=== PATIENT | male | born 1990 | race Caucasian/White ===

== ENCOUNTER 2025-01-13 11:36 | Inpatient (IN) | payer OTHER ==
[~2025-01-13] VITALS: Ht 177.8 cm; Wt 95.0 kg
[2025-01-13 12:10] LABS: BASOPHILS % (AUTO) 0.3 % (0-1); EOSINOPHILS % (AUTO) 0.6 % (0-6); HEMATOCRIT 44.5 % (42.0-52.0); HEMOGLOBIN 15.2 g/dl (14.0-17.9); LYMPHOCYTES # (AUTO) 0.9 X10'3 (1.1-4.8); LYMPHOCYTES % (AUTO) 13.6 % (21-51); MEAN CORPUSCULAR HEMOGLOBIN 31.7 PG (27.0-31.0); MEAN CORPUSCULAR HGB CONC 34.1 g/dL (33.0-36.5); MEAN PLATELET VOLUME 7.7 FL (7.4-10.4); MONOCYTES # (AUTO) 0.4 X10'3 (0-0.9); MONOCYTES % (AUTO) 5.7 % (2-12); NEUTROPHILS # (AUTO) 5.2 X10'3 (1.8-7.7); NEUTROPHILS % (AUTO) 79.8 % (42-75); PLATELET COUNT 212 X10'3 (140-440); RED BLOOD COUNT 4.78 X10'6 (4.70-6.10); RED CELL DISTRIBUTION WIDTH 13.3 % (11.5-14.5); WHITE BLOOD COUNT 6.5 X10'3 (4.5-11.0)
[2025-01-13 12:22] LABS: APTT 32 SECONDS (22-32); INR 1.2 INR; PROTHROMBIN TIME 11.9 SECONDS (9.0-12.0)
[2025-01-13 12:27] LABS: ALANINE AMINOTRANSFERASE 22 U/L (12-78); ALBUMIN 3.7 G/DL (3.4-5.0); ALBUMIN/GLOBULIN RATIO 1.5 (1.1-1.5); ALKALINE PHOSPHATASE 71 IU/L (46-116); ANION GAP 5 (8-16); ASPARTATE AMINO TRANSFERASE 22 U/L (10-37); BILIRUBIN,TOTAL 0.5 MG/DL (0.1-1.0); BLOOD UREA NITROGEN 21 MG/DL (7-18); BUN/CREATININE RATIO 16.9 (10.0-20.0); CHLORIDE 108 MMOL/L (99-107); CREATININE 1.24 MG/DL (0.60-1.10); GLUCOSE 92 MG/DL (70-104); LIPASE 22 U/L (16-77); POTASSIUM 4.1 MMOL/L (3.5-5.1); SODIUM 141 MMOL/L (135-145); TOTAL CARBON DIOXIDE 28.3 MMOL/L (24-32); TOTAL PROTEIN 6.1 G/DL (6.4-8.2); eCRCL 87 ML/MIN; eGFR 67 ML/MIN
--- NOTE | 2025-01-13 13:07 | Physician Documentation ---
History of Present Illness Chief Complaint: Abdominal Pain Stated Complaint: SMALL BOWEL OBST Time Seen by MD: 12:55 HPI 34-year-old male presenting via EMS transferred from [facility] in [place], [place]. This is a gentleman presenting with abdominal pain which has been ongoing for the past day. He states that he woke up at about 3:00 a.m. with significant pain across his lower abdomen.. He states that it is centered around his umbilicus and radiates outwards. He states that the pain has gradually been worsening over the past couple of days. He has not had any bowel movements but has been passing gas. He has also felt very nauseous during this time as well but denies any vomiting, denies any diarrhea, constipation or any other associated symptoms. The patient does have a history of an appendectomy which required open laparoscopy several years ago. Medication Reconciliation Allergies: Coded Allergies: morphine (Verified Allergy, Severe, 01/18/25) TOLERATED HYDROMORPHONE 01/2025 Miscellaneous Medications Home Med List (No Home Medications), (Reported) Past Medical History Past Medical History: No Pertinent History Past Surgical History: appendectomy Review of Systems All Other Systems at this time: Reviewed and Negative Physical Exam Vital Signs: Temperature: 98.4, Source: Temporal, Heart Rate: 85, Respiratory Rate: 18, BP: 129/50, Pulse Oximetry: 98, Weight: 95.050 Physical Exam I have reviewed the triage vitals. CONST: Well developed and well nourished. In no acute distress HENT: Head Atraumatic EYES: Pupils are equal, round and reactive to light. Normal conjunctiva NECK: Normal range of motion. Supple. CARDIO: Normal rate and regular rhythm. No murmurs, rubs, or gallops. S1, S2. PULM/CHEST: No respiratory distress. Lungs clear to auscultation. No wheeze ABD: Soft, tenderness to palpation over the umbilicus and diffusely in all other areas. There is a midline surgical scar present. Nondistended. Bowel sounds normal. No guarding. : Exam deferred MSK: No edema. No deformity. NEURO: Alert and oriented to person, place and time. Moving all extremities SKIN: Warm and dry. PSYCH: Normal mood and affect. Good eye contact. Progress Results/Orders Results/Orders Orders - MY DOMINGUEZ MD Normal Saline 1000ml (Sodium Chloride 10 (01/13/25 13:05) Ketorolac Trometh 30mg/Ml Vial (Toradol (01/13/25 13:05) Completed Orders - MY DOMINGUEZ MD Cbc/Diff (01/13/25 11:49) CMP (01/13/25 11:49) Pt Inr (01/13/25 11:49) PTT (01/13/25 11:49) Lipase (01/13/25 11:49) Vital Signs 01/13/25 01/13/25 11:41 12:16 Temp 98.4 Pulse 85 Resp 18 B/P (MAP) 129/50 Pulse Ox 98 Laboratory Tests Test 01/13/25 11:57 White Blood Count 6.5 Red Blood Count 4.78 Hemoglobin 15.2 Hematocrit 44.5 Mean Corpuscular Volume 93.0 Mean Corpuscular Hemoglobin 31.7 H Mean Corpuscular Hemoglobin Concent 34.1 Red Cell Distribution Width 13.3 Platelet Count 212 Mean Platelet Volume 7.7 Neutrophils (%) (Auto) 79.8 H Lymphocytes (%) (Auto) 13.6 L Monocytes (%) (Auto) 5.7 Eosinophils (%) (Auto) 0.6 Basophils (%) (Auto) 0.3 Neutrophils # (Auto) 5.2 Lymphocytes # (Auto) 0.9 L Monocytes # (Auto) 0.4 Eosinophils # (Auto) 0.0 Basophils # (Auto) 0.0 CBC Comment Prothrombin Time 11.9 INR International Normalized Ratio 1.2 Activated Partial Thromboplast Time 32 Coagulation Comments Sodium Level 141 Potassium Level 4.1 Chloride Level 108 H Carbon Dioxide Level 28.3 Anion Gap 5 L Blood Urea Nitrogen 21 H Creatinine 1.24 H Estimated GFR/1.73 m2 67 BUN/Creatinine Ratio 16.9 Glucose Level 92 Calcium Level 8.0 L Total Bilirubin 0.5 Aspartate Amino Transf (AST/SGOT) 22 Alanine Aminotransferase (ALT/SGPT) 22 Alkaline Phosphatase 71 Total Protein 6.1 L Albumin 3.7 Globulin 2.4 L Albumin/Globulin Ratio 1.5 Lipase 22 Chemistry Comments EKG/XRAY/CT/US/VASC/MRI Abdominal X-Ray : Additional Comment Patient: CLARK SRIVASTAVA Medical Record: [id number] : 1990, Age: 34 Sex: Male Location: ED HOLD Patient Status: ADM IN Service Date/Time: 01/13/251641 Ordering Physician: MY DOMINGUEZ MD Exam: ABDOMEN,SINGLE VIEW(KUB) EXAM: DI ABDOMEN,SINGLE VIEW(KUB) HISTORY: NGT placement. COMPARISON: None TECHNIQUE: Supine view of the abdomen FINDINGS: Nonobstructive bowel gas pattern noted. There is no evidence for pneumoperitoneum. No abnormal calcifications noted. Enteric tube in the proximal body of the stomach. Mild stool burden. IMPRESSION Enteric tube in the proximal body of the stomach. Medical Decision Making Additional Comments 34 yo M presenting for a small bowel obstruction. Started on IV fluids and medicated for pain with IV dilaudid. NG tube placed. Patient admitted and surgery consulted as well. Departure Disposition: ADMITTED INPATIENT Admitted to Inpatient Unit: to hospitalist Admission Level of Care: Med/Surg Impression: Primary Impression: Small bowel obstruction Condition: Guarded Referrals: NO PRIMARY CARE PROVIDER (PCP) Signature Scribe Signature: 1 Attestation: 1 MY DOMINGUEZ MD Jan 13, 2025 13:07
[2025-01-13] MEDS: normal saline 1000ml 1,000 ML IV ONE (13:35)
[2025-01-13] MEDS: ketorolac trometh 30MG/ML vial 30 MG/ML VIAL IV ONE (13:35)
[2025-01-13] MEDS: HYDROmorphone inj. 0.5 MG/0.5 ML DISP.SYRIN IV ONE (14:00)
[2025-01-13] MEDS ORDERED: acetaminophen 325mg tablet PO PRN (15:50)
[2025-01-13] MEDS ORDERED: potassium Cl 40MEQ/1/2NS 520ml 520 ML IV PRN (15:50)
[2025-01-13] MEDS ORDERED: magnesium sulf-water 2g/50mL 50 ML IV PRN (15:50)
[2025-01-13] MEDS ORDERED: HYDROmorphone/PF 0.2 MG/ML SYRINGE IV PRN (15:50)
[2025-01-13] MEDS ORDERED: magnesium sulf-water 4G/100mL 100 ML IV PRN (15:50)
[2025-01-13] MEDS ORDERED: magnesium Cl slow-release 64mg tablet PO PRN (15:50)
[2025-01-13] MEDS ORDERED: docusate sod 100mg capsule PO PRN (15:50)
[2025-01-13] MEDS ORDERED: potassium Cl 20 mEq SR tablet PO PRN ×2 (15:50)
[2025-01-13] MEDS ORDERED: magnesium hydroxide 30ml (MOM) UD suspension PO PRN (15:50)
[2025-01-13] MEDS ORDERED: mag hydrox/Alum hydrox/simeth 30ml oral suspension PO PRN (15:50)
--- NOTE | 2025-01-13 16:10 | HISTORY AND PHYSICAL-Residence ---
History & Physical Providers to CC Resident Creating Document: HARJINDER BARRETTZA ~ History of Present Illness Reason for Admit\Complaint: Partial SBO History of Present Illness A 34 years old male with no significant past medical history except for the s/p laproscopic and complicated with the laprotomy appendicectomy who was transferred from the [facility] in [place] for the sudden acute lower abdominal pain since this morning with slight nausea. He is a travel ICU nurse and endorsed that he woke up with the acute sudden central periumbilical pain with sharp colicky in nature, associated with nausea but not vomiting this morning around 3 O'clock. He noticed that his pain was getting better with the position which make his intraabdominal pressure relieved e.g. lying down and sitting etc and similar to the pain when he got appendicitis. He could pass the gas but not the bowel movement since he passed his last time BM was yesterday morning and which was normal solid form and no previous Hx of LBM diarrhea and constipation. He denied radiating and shifting pain, fever with chills and rigors, projectile vomiting, SOB, perspiration, Chest pain, hematuria and dysuria. He denies any traumatic injury to the lower abdomen, scrotum and private parts, any previous Hx of UTIs and STIs before. However, he stated that he has a laparoscopic incisional approach for suspicious malignant intrabdominal lesion but had to do the open incision for the appendicitis, which was further complicated with the open midline laparotomy for the decompression within days 1-2 years ago. He denied any recent travelling history outside of the countries and food poisoning. He denies losing appetite and unexplained significant abrupt weight loss. No history of bilateral inguinal femoral and umbilical hernias. Allergies: Coded Allergies: morphine (Verified Allergy, Severe, 01/13/25) Past Medical History Past Medical History no significant past medical history Past Surgical History Surgical History Comment s/p laproscopic and complicated with the laprotomy appendicectomy Past Social History Social History Comment He denies using illicit drugs, lifetime nonsmoker, and he is a occasional alcohol user with a beer in every two weeks. He is a travel ICU nurse. ROS All Other Systems: Reviewed and Negative ROS ROS were reviewed, WNL except for the above-mentioned in HPI. Exam Vitals: Vital Signs Date Time Temp Pulse Resp B/P (MAP) Pulse Ox O2 Delivery O2 Flow Rate FiO2 01/13/25 15:00 72 115/57 (76) 96 01/13/25 14:00 16 01/13/25 11:41 98.4 General: General: Well alert, well oriented, not confused, not agitated, not in acute distress, well cooperated during the physical. HEENT: HEENT: Conjunctive are pink, sclerae clear, no icterus, pupil is equal in both sides, reactive to light, no ear discharge, no pharyngeal erythema or an edema, mouth and lips are dry. Neck: Neck: Supple, no JVD, no lymphadenopathy and thyromegaly. Chest: Lungs:Equal air entry on both lungs, no additional sounds Cardiovascular: Heart: S1-S2 regular sinus rhythm and, regular rate, no gallops, no rubs, no murmurs Abdomen: Abdomen: No visible peristalsis, Bowel sounds present on auscultation and increased, soft, tender at the epigastrium, and left flank and periumbilical areas, no guarding, no rigidity, NO undescended intra-abdominal testes and both scrotum filled with bilateral testes, no club shape or horizontal rotated testes in the scrotum, no inflammed and signs of infections over the scrotum. No bilateral or umbilical hernia. Extremities: Extremities: No obvious deformities, no pitting edema bilaterally, capillary refill intact, able to wiggle toes both sides, peripheral pulsations are intact on both sides Central Nervous System: SPEED BELT SANDER: No focal neurological deficits, no motor and sensory weakness in all 4 extremities, could move all 4 extremities Musculoskeletal: Musculoskeletal: No joint swelling, deformities, inflammations, and no scoliosis and back tenderness Skin: Skin: No active skin lesions and rashes Diagnostic Data Last Recorded Lab Results: 01/13/25 1157 01/13/25 1157 Diagnostic Data: Laboratory Tests Test 01/13/25 11:57 Prothrombin Time 11.9 SECONDS (9.0-12.0) INR International Normalized Ratio 1.2 INR Activated Partial Thromboplast Time 32 SECONDS (22-32) Coagulation Comments Advance Care Planning Advanced Care plannin - 30 Minutes Additional Plan A 34 years old male with no significant past medical history except for the s/p laproscopic and complicated with the laprotomy appendicectomy who was transferred from the [facility] in [place] for the sudden acute lower abdominal pain since this morning with slight nausea. # Partial SBO possibly related to post surgical adhesions # Hx of s/p laparoscopic and complicated with the laparotomy appendicectomy -CT AP was done at [facility] stated that partial SBO. -excluded other potential DDx w/ undescended testes, testicular torsion, kidney stones etc. -possibly from the previous surgical laparotomy and adhesions causing his SBO -electrolytes are within normal schuyler K+ -WNL Lactic acid, WBC and Procal -pain management with IV dilaudid and rash development Hx on Morphine -IV NS 100 ml/hr -NPO -NG tube placement for the bowel decompression -Monitor BM BG and BS -Encouraged movements -ER doc informed that he will inform the Oncall Surgical team. -CT AP w/ contrast at [facility] on 01/13/25 showed that Findings: Lung bases, liver, gallbladder, pancreas spleen and adrenal glands, kidneys, urinary bladder-unremarkable. -the colon is within normal limits. Appendicectomy suspected. The terminal ileum is decompressed. Moderately dilated loops of small bowel are visualized measuring up to 3.5 cm, demonstrating small bowel feces signs and air-fluid levels. No evidence of extraluminal gas or fluid. There are no enlarged lymph nodes. Impressions: Moderate grade partial small bowel obstruction. Transition point is not identified. There appears to be appendectomy, therefore findings may be related to postsurgical adhesions. Consider surgical consultation. # Elevated BUN and Cr- possible ROHIT renal from contrast induced Vs prerenal from renal tubular stasis from dehydration -Cr 1.24 with no baseline to be compared, mostly from the dehydration from last drinks and meal was 5 Oclock in the am. -Monitor CMP daily and I's and O's -Continue IV NS 100 ml/hr CODE STATUS: Full code DVT prophylaxis: Sc heparin 5000 units b.i.d. Analgesia/sedation: IV Dilaudid, of note pt dose not want any opioid for Constipation and recommend for suppository acetaminophen as needed Lines/tubes: Peripheral IV GI prophylaxis: Famotidine Nutrition: NPO Prognosis: Guarded Disposition: Continue medical management including pain management, IV fluids and abdominal distention monitoring with bowel movement, bowel sounds monitoring, NG tube placement, F/up W/surgical consultation, DC plan. Resident attestation: Patient was seen and examined with attending MD, Dr. Luisito BARRETT MD Internal Medicine Resident, PGY2 [facility] Date of Service: Jan 13, 2025 Billing Provider: BELA CARDONA MD Common Visit Codes: [id number] INP/OBS CARE (HIGH) Secondary Visit Codes: [id number] CARE PLAN 30 MINUTES HARJINDER BARRETT, RES Jan 13, 2025 16:10 BELA CARDONA MD Jan 14, 2025 22:01
[2025-01-13] MEDS ORDERED: NO HOME MEDS (16:32)
[2025-01-13] MEDS: LidoCAINE 2% Topical Jelly 11mL syringe (UROJET) TOP ONE (16:45)
--- NOTE | 2025-01-13 17:03 | RADIOLOGY REPORT ---
EXAM: DI ABDOMEN,SINGLE VIEW(KUB) HISTORY: NGT placement. COMPARISON: None TECHNIQUE: Supine view of the abdomen FINDINGS: Nonobstructive bowel gas pattern noted. There is no evidence for pneumoperitoneum. No abnormal calcif ications noted. Enteric tube in the proximal body of the stomach. Mild stool burden. IMPRESSION Enteric tube in the proximal body of the stomach.
--- NOTE | 2025-01-13 17:13 | PROGRESS NOTE ---
Progress Note ID Providers to CC ~ Progress Note Progress Note: pt seen and examined-needs repeat ct with oral contrast in am ELVIS LOVETT MD Jan 13, 2025 17:13
[2025-01-13] MEDS: HYDROmorphone inj. 0.5 MG/0.5 ML DISP.SYRIN IV PRN (17:59)
[2025-01-13 18:55] LABS: INR 1.2 INR; PROTHROMBIN TIME 11.9 SECONDS (9.0-12.0)
[2025-01-13] MEDS: normal saline 1000ml 1,000 ML IV SCH (19:00)
[2025-01-13] MEDS: K and/or MAG REPLACEMENT MC SCH (19:54)
[2025-01-13] MEDS: acetaminophen 1,000mg/100ml IV 100 ML IV SCH (20:05)
[2025-01-13] MEDS: heparin, porcine 5000 units/ml vial SQ SCH (20:06)
[2025-01-13 20:09] VITALS: BP 119/67; PULSE 67; RESP 16; TEMP 98; O2SAT 99
[2025-01-13] MEDS: diatr meglu/diatrizoate 30ml oral sol.-(3 dose) bottle PO SCH (20:56)
[2025-01-13 22:00] VITALS: BP 113/45; PULSE 74; RESP 14; TEMP 97.6; O2SAT 98
[2025-01-14] VITALS (24 sets, daily range): BP systolic 102–153; BP diastolic 42–86; PULSE 74–122; RESP 12–20; TEMP 98.3–99; O2SAT 93–100
[2025-01-14] MEDS: HYDROmorphone 1 mg/ml syringe IV PRN ×2 (01:41→12:33)
[2025-01-14] MEDS: ondansetron/PF 4mg/2ml inj IV PRN ×2 (01:56→18:15)
[2025-01-14 02:09] LABS: BILIRUBIN,URINE SMALL (Neg); CLARITY,URINE CLEAR (Clear); COLOR,URINE YELLOW (Yellow); GLUCOSE, URINE NEGATIVE (Neg); KETONES,URINE 15 mg/dl (Neg); LEUKOCYTE ESTERASE ,URINE NEGATIVE (Neg); NITRITES, URINE NEGATIVE (Neg); OCCULT BLOOD,URINE NEGATIVE (Neg); PROTEIN,URINE NEGATIVE (Neg); UROBILINOGEN,URINE 0.2 E.U/dL (0.2-1.0)
[2025-01-14 02:10] LABS: UA COLLECTION TYPE VOIDED
[2025-01-14 03:39] LABS: BASOPHILS % (AUTO) 0.5 % (0-1); EOSINOPHILS # (AUTO) 0.1 X10'3 (0-0.9); HEMATOCRIT 42.1 % (42.0-52.0); HEMOGLOBIN 14.5 g/dl (14.0-17.9); LYMPHOCYTES # (AUTO) 0.7 X10'3 (1.1-4.8); LYMPHOCYTES % (AUTO) 11.7 % (21-51); MEAN CORPUSCULAR HEMOGLOBIN 31.9 PG (27.0-31.0); MEAN CORPUSCULAR HGB CONC 34.4 g/dL (33.0-36.5); MEAN CORPUSCULAR VOLUME 92.8 FL (78-98); MEAN PLATELET VOLUME 7.9 FL (7.4-10.4); MONOCYTES # (AUTO) 0.5 X10'3 (0-0.9); MONOCYTES % (AUTO) 7.7 % (2-12); NEUTROPHILS # (AUTO) 4.8 X10'3 (1.8-7.7); NEUTROPHILS % (AUTO) 78.1 % (42-75); PLATELET COUNT 200 X10'3 (140-440); RED BLOOD COUNT 4.54 X10'6 (4.70-6.10); WHITE BLOOD COUNT 6.2 X10'3 (4.5-11.0)
[2025-01-14 03:43] LABS: ALANINE AMINOTRANSFERASE 23 U/L (12-78); ALBUMIN 3.2 G/DL (3.4-5.0); ALBUMIN/GLOBULIN RATIO 1.5 (1.1-1.5); ALKALINE PHOSPHATASE 63 IU/L (46-116); ANION GAP 6 (8-16); ASPARTATE AMINO TRANSFERASE 17 U/L (10-37); BILIRUBIN,TOTAL 0.6 MG/DL (0.1-1.0); BLOOD UREA NITROGEN 20 MG/DL (7-18); CALCIUM 8.1 MG/DL (8.5-10.1); CHLORIDE 107 MMOL/L (99-107); CREATININE 1.33 MG/DL (0.60-1.10); GLUCOSE 87 MG/DL (70-104); MAGNESIUM 1.8 MG/DL (1.5-2.4); POTASSIUM 4.2 MMOL/L (3.5-5.1); SODIUM 139 MMOL/L (135-145); TOTAL CARBON DIOXIDE 25.8 MMOL/L (24-32); TOTAL PROTEIN 5.4 G/DL (6.4-8.2); eCRCL 82 ML/MIN; eGFR 62 ML/MIN
[2025-01-14] MEDS: famotidine/PF 10 mg/ml inj IV SCH (07:38)
--- NOTE | 2025-01-14 10:17 | RADIOLOGY REPORT ---
Procedure: CT CT ABDOMEN PELVIS W/ ORAL CONTRAST 01/14/2025 08:59 AM Indication: Partial SBO Comparison Study: None Technique: Axial images were obtained and reformatted in coronal and sagittal planes. All CT scans at this medical facility are performed using dose modulation techniques as appropriate to a performed e xam including the following: Automated exposure control was utilized; adjustment of the MA and/or KV according to patient size; and use of iterative reconstruction technique. CT Dose: CTDI volume is 21 mGy. Dose-length product is 1178.3 mGy*cm FINDINGS: Lower Chest: Unremarkable. Hepatobiliary: Unremarkable. Spleen: Unremarkable. Pancreas: Unremarkable. Adrenal Glands: Unremarkable. tract: The kidneys are normal in size bilaterally without hydronephrosis or nephrolithiasis. The u rinary bladder is unremarkable. GI tract: The enteric tube extends to the stomach. Contrast is seen in the lumen of the stomach exte nding to the small bowel with gradual dilution in the jejunal loops. Distended jejunal loops are note d measuring up to 4.8 cm in caliber. The transition point in the right lower quadrant at the level of the umbilicus. Oral contrast does not extend to ileum or large bowel. Small amount of free fluid is seen in the abdomen and pelvis. No signs of perforation. No pneumoperitoneum is seen. No loculated fl uid collection. Lymphatics: No mesenteric, retroperitoneal or periportal lymphadenopathy. Vasculature: The abdominal aorta is normal in caliber. Pelvic Organs: Unremarkable Bones/soft tissues: No acute abnormality. Other: None. IMPRESSION: 1. Small-bowel obstruction with transition point in the right lower quadrant at the level of the umbi licus. Oral contrast does not extend to the ileum and large bowel. No signs of perforation. Small bello unt of free fluid noted in the abdomen and pelvis. Mild small bowel wall and mesenteric edema noted.
--- NOTE | 2025-01-14 13:41 | PROGRESS NOTE ---
Progress Note ID Providers to CC ~ Progress Note Progress Note: ct with persistent sbo-pt needs ex lap-discussed procedure including risks/benefits/alternatives ELVIS LOVETT MD Jan 14, 2025 13:41
[2025-01-14] MEDS ORDERED: glucagon, human recombinant 1mg kit SUBCUT PRN (13:50)
[2025-01-14] MEDS ORDERED: DEXTROSE 15 GM of carb/4 tabs (each vial/BOTTLE has 4 tablets) PO PRN ×2 (13:50)
[2025-01-14] MEDS ORDERED: dextrose 50%-water 50ml dispensing syringe IV PRN (13:50)
[2025-01-14] MEDS: dextrose 50%-water 50ml dispensing syringe IV PRN (13:58)
[2025-01-14] MEDS ORDERED: sevoflurane 250ml liquid IH ONE (14:52)
[2025-01-14] MEDS ORDERED: midazolam 1 mg/ML 2ml injection ONE (14:57)
[2025-01-14] MEDS ORDERED: famotidine/PF 10 mg/ml inj IV ONE (14:58)
[2025-01-14] MEDS ORDERED: BUPIVAcaine 2.5mg/ml inj 50ml vial (contains preservative) ONE (15:08)
[2025-01-14] MEDS ORDERED: BUPIVACAINE liposomal/PF 13.3 MG/ML 10mL vial IM ONE (15:09)
[2025-01-14] MEDS ORDERED: BUPIVAcaine/PF 2.5mg/ml (0.25%) 10ml vial ONE (15:10)
[2025-01-14] MEDS ORDERED: fentaNYL /PF 50mcg/ml 5ml ampule ONE (15:23)
[2025-01-14] MEDS ORDERED: hydrALAZINE 20mg/ml inj. IV PRN (15:30)
[2025-01-14] MEDS ORDERED: meperidine/PF 25mg/ml syringe IV PRN ×3 (15:30)
[2025-01-14] MEDS ORDERED: labetalol 20mg/4ml (5mg/ml) syringe IV PRN (15:30)
[2025-01-14] MEDS: ringers solution, lacted 1,000 ML IV SCH (15:30)
[2025-01-14] MEDS ORDERED: propofol inj 20 ML IV ONE ×2 (15:33)
[2025-01-14] MEDS ORDERED: rocuronium 10mg/ml inj IV ONE ×4 (15:33→17:03)
[2025-01-14] MEDS ORDERED: ceFOXitin 1000 MG inj ONE ×2 (15:33)
[2025-01-14] MEDS ORDERED: LIDOcaine 2% (20mg/ml) 5ml vial ONE (15:33)
[2025-01-14] MEDS ORDERED: ondansetron/PF 4mg/2ml inj ONE (15:33)
[2025-01-14] MEDS ORDERED: dexamethasone sod phosphate 4mg/ml inj. ONE (15:34)
[2025-01-14] MEDS ORDERED: sugammadex 200mg/2ml injection IV ONE (17:42)
[2025-01-14] MEDS ORDERED: neostigmine methylsulfate 1 MG/ML 10ml vial ONE (17:47)
[2025-01-14] MEDS ORDERED: glycopyrrolate 0.2mg/ml inj ONE (17:48)
[2025-01-14] MEDS: HYDROmorphone/PF 0.2 MG/ML SYRINGE IV PRN ×2 (17:59→18:39)
--- NOTE | 2025-01-14 18:00 | OPERATIVE REPORT ---
Operative Report Providers to CC ~ Date of Procedure: Jan 14, 2025 Pre-Operative Diagnosis: SBO Post-Operative Diagnosis SAME as PRE-Op Procedure Performed EX LAP/JENNY Surgeon: BONY TOLBERT Anesthesiologist: Rose Causey Type of Anesthesia: General Findings: COMPLETE SBO SECONDARY TO ADHESIONS Estimated Blood Loss: 200 ML Specimen Removed: NONE ELVIS LOVETT MD Jan 14, 2025 18:00
[2025-01-14] MEDS ORDERED: ondansetron/PF 4mg/2ml inj IV PRN (18:05)
[2025-01-14] MEDS ORDERED: naloxone 0.4 mg/ml inj IV PRN (18:05)
[2025-01-14] MEDS ORDERED: meperidine/PF 100mg/ml syringe ONE (18:08)
[2025-01-14] MEDS: acetaminophen 1,000mg/100ml IV 100 ML IV PRN (18:10)
[2025-01-14] MEDS ORDERED: meperidine/PF 100mg/ml syringe IV PRN ×2 (18:10)
[2025-01-14] MEDS: ketorolac trometh 30MG/ML vial 30 MG/ML VIAL IV ONE (18:16)
[2025-01-14] MEDS: proCHLORperazine 10 MG/2 ml inj IV PRN (18:27)
[2025-01-14] MEDS: meperidine/PF 100mg/ml syringe IV PRN (19:25)
[2025-01-14] MEDS: potassium CL 20mEq in D5-1/2NS 1,000 ML IV SCH (20:11)
--- NOTE | 2025-01-14 20:16 | PROGRESS NOTE- Residence ---
Progress Note - Resident Providers to CC Resident Creating Document: HARJINDER BARRETT RES ~ Antibiotic Timeout Antibiotic Ordered?: Yes Subjective Patient was found on the bed with a nasogastric tube draining which is still draining, abdominal pain is still persistent, repeated CTA abdomen and pelvis show persistent obstruction which needed for surgical intervention. Patient will be taken to the OR for the possible exploratory laparotomy by Dr. Jacobson today after risks and benefits with alternative methods were discussed with Dr. Jacobson. Objective Vital Signs Date Time Temp Pulse Resp B/P (MAP) Pulse Ox O2 Delivery O2 Flow Rate FiO2 01/14/25 19:30 104 14 136/70 (92) 95 Nasal Cannula 2.0 01/14/25 17:50 97.7 01/14/25 13:00 21 Result Diagram: 01/14/25 0305 01/14/25 0305 Vitals were stable at the moment. General: Well alert, well oriented, not confused, not agitated, not in acute distress, well cooperated during the physical. Nasogastric tube in Situ which is still functioning and draining. HEENT: Conjunctive are pink, sclerae clear, no icterus, pupil is equal in both sides, reactive to light, no ear discharge, no pharyngeal erythema or an edema, mouth and lips are dry. Neck: Supple, no JVD, no lymphadenopathy and thyromegaly. Lungs:Equal air entry on both lungs, no additional sounds Heart: S1-S2 regular sinus rhythm and, regular rate, no gallops, no rubs, no murmurs Abdomen: No visible peristalsis, Bowel sounds present on auscultation and increased, soft, tender at the epigastrium, and left flank and periumbilical areas, no guarding, no rigidity. No understand testes and scrotum inflammation. No bilateral or umbilical hernia. Extremities: No obvious deformities, no pitting edema bilaterally, capillary refill intact, able to wiggle toes both sides, peripheral pulsations are intact on both sides TECHNICAL TRAINING SPECIALIST: No focal neurological deficits, no motor and sensory weakness in all 4 extremities, could move all 4 extremities Musculoskeletal: No joint swelling, deformities, inflammations, and no scoliosis and back tenderness Skin: No active skin lesions and rashes Coagulation Studies Laboratory Tests Test 01/13/25 11:57 01/13/25 18:13 Activated Partial Thromboplast Time 32 SECONDS (22-32) Prothrombin Time 11.9 SECONDS (9.0-12.0) INR International Normalized Ratio 1.2 INR Coagulation Comments Assessment Assessment A 34 years old male with no significant past medical history except for the s/p laproscopic and complicated with the laprotomy appendicectomy who was transferred from the [facility] in [place] for the sudden acute lower abdominal pain since this morning with slight nausea. Plan Plan # S/p exploratory laparotomy for persistent SBO secondary from adhesions # Partial SBO possibly related to post surgical adhesions # Hx of s/p laparoscopic and complicated with the laparotomy appendicectomy 01/14/25: Dr. Velazquez will perform the possible exploratory laparotomy for his persistent SBO secondary from adhesions as his repeated CTA with oral contrast today showed Small-bowel obstruction with transition point in the right lower quadrant at the level of the umbilicus. Oral contrast does not extend to the ileum and large bowel. No signs of perforation. Small amount of free fluid noted in the abdomen and pelvis. Mild small bowel wall and mesenteric edema noted. -control pain management with IV Dilaudid 1 mg q.2 hours as patient pain is not controlled with IV Dilaudid q.4 hours. 01/13/29:-CT AP was done at [facility] stated that partial SBO. -excluded other potential DDx w/ undescended testes, testicular torsion, kidney stones etc. -possibly from the previous surgical laparotomy and adhesions causing his SBO -electrolytes are within normal schuyler K+ -WNL Lactic acid, WBC and Procal -pain management with IV dilaudid and rash development Hx on Morphine -IV NS 100 ml/hr -NPO -NG tube placement for the bowel decompression -Monitor BM BG and BS -Encouraged movements -ER doc informed that he will inform the Oncall Surgical team. -CT AP w/ contrast at [facility] on 01/13/25 showed that Findings: Lung bases, liver, gallbladder, pancreas spleen and adrenal glands, kidneys, urinary bladder-unremarkable. -the colon is within normal limits. Appendicectomy suspected. The terminal ileum is decompressed. Moderately dilated loops of small bowel are visualized measuring up to 3.5 cm, demonstrating small bowel feces signs and air-fluid levels. No evidence of extraluminal gas or fluid. There are no enlarged lymph nodes. Impressions: Moderate grade partial small bowel obstruction. Transition point is not identified. There appears to be appendectomy, therefore findings may be related to postsurgical adhesions. Consider surgical consultation. # Elevated BUN and Cr- possible ROHIT renal from contrast induced Vs prerenal from renal tubular stasis from dehydration 01/14/25: Creatinine 1.33, slightly up trending from his admission 1.24 -continuous monitoring, continue IV fluid drips -continue I's and O's, including nasogastric tube drainage. 01/13/29:-Cr 1.24 with no baseline to be compared, mostly from the dehydration from last drinks and meal was 5 Oclock in the am. -Monitor CMP daily and I's and O's -Continue IV NS 100 ml/hr CODE STATUS: Full code DVT prophylaxis: Sc heparin 5000 units b.i.d. Analgesia/sedation: IV Dilaudid Lines/tubes: Peripheral IV GI prophylaxis: Famotidine Nutrition: NPO Prognosis: Guarded Disposition: Continue medical management including pain management, IV fluids and abdominal distention monitoring with bowel movement, post op care as per Surgical team, bowel sounds monitoring, NG tube drainage monitoring, and PT eval with DC plan. Resident MD attestation: Patient was seen and examined with attending MD, Dr. Luisito BARRETT MD Internal Medicine Resident, PGY2 [facility] Date of Service: Jan 14, 2025 Billing Provider: BELA CARDONA MD Common Visit Codes: [id number] INP/OBS CARE(HIGH) HARJINDER BARRETT, RES Jan 14, 2025 20:16 BELA CARDONA MD Jan 14, 2025 21:57
--- NOTE | 2025-01-14 21:13 | RADIOLOGY REPORT ---
Procedure: DI CHEST,SINGLE VIEW 01/14/2025 05:57 PM Indication: POST OP Comparison: None TECHNIQUE: DI CHEST,SINGLE VIEW FINDINGS: Medical devices: Enteric tube below the left diaphragm in the stomach. Right internal jugular cathet er in place in superior vena cava above the right atrium. Cardiomediastinal: The heart is normal in size. Pulmonary vasculature is within normal limits. Lungs: No focal pulmonary opacity is seen. The costophrenic angles are clear. No pneumothorax. Bones/soft tissues: No acute abnormality is noted. IMPRESSION: 1. Enteric tube in the stomach 2. Right internal jugular catheter in the superior vena cava above the right atrium. No right pneumot horax
[2025-01-15] VITALS (8 sets, daily range): BP systolic 108–123; BP diastolic 56–75; PULSE 83–99; RESP 13–19; TEMP 97.8–99.6; O2SAT 94–99
--- NOTE | 2025-01-15 02:21 | CONSULTATION ---
DATE OF CONSULTATION: 01/13/2025 DICTATING PHYSICIAN: Mauro Agustin MD REASON FOR CONSULTATION: Evaluation for possible bowel obstruction. HISTORY OF PRESENT ILLNESS: The patient is a 34-year-old male with a history of laparotomy for complicated appendicitis. No upper abdominal discomfort in the last few days. He was seen at [facility] in [place]. He has had some nausea, but no vomiting. No fever. Last BM in the last couple of days. ____ previous laparotomy for a complicated appendicitis. PAST MEDICAL HISTORY: Negative. PAST SURGICAL HISTORY: As outlined above. HOME MEDICATIONS: See chart. ALLERGIES: MORPHINE. SOCIAL HISTORY: Nonsmoker. No drug use. Occasional alcohol use. 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 REVIEW OF SYSTEMS: See H and P. PHYSICAL EXAMINATION: GENERAL: A pleasant, well-nourished male, in no distress. VITAL SIGNS: Unremarkable. HEART: Regular rate and rhythm. LUNGS: Clear to auscultation. ABDOMEN: Distended with some mild tenderness. No karen peritonitis. EXTREMITIES: Unremarkable. GENITOURINARY: No hernias noted. LABORATORY DATA: WBC of 6.5, hematocrit of 44, platelet count 212. Chemistries: BUN and creatinine 21 and 1.24. CO2 is 28. IMAGING STUDIES: CT abdomen report reveals small bowel obstruction. IMPRESSION: Small bowel obstruction without peritonitis. PLAN: * Admit. * Hydrate. * NG tube. * Repeat calcium in 24 hours. Mauro Agustin MD TID: [id number] RECEIPT: [id number] ZHANG/KVNG/RUFUS
--- NOTE | 2025-01-15 02:59 | OPERATIVE REPORT ---
DATE OF SURGERY: 01/14/2025 DICTATING PHYSICIAN: Mauro Agustin MD PREOPERATIVE DIAGNOSIS: Small bowel obstruction. POSTOPERATIVE DIAGNOSIS: Small bowel obstruction. PROCEDURES PERFORMED: * Exploratory laparotomy. * Lysis of adhesions. SURGEON: Mauro Agustin MD OUTSOLE CASER: None. ANESTHESIA: General/Rose Causey MD. DRAINS: None. INDICATIONS FOR OPERATION: A 34-year-old male with previous laparotomy for acute appendicitis. He developed a small bowel obstruction. Followup CAT scan revealed improvement. The patient was seen in Surgery for laparotomy. INTRAOPERATIVE FINDINGS: The patient had extensive adhesions with a complete small bowel obstruction involving the distal jejunum. DESCRIPTION OF PROCEDURE: The patient was placed supine on the operating table. After induction of general anesthesia and placement of endotracheal tube, the abdomen was prepped and draped. Abdomen was entered with midline incision and upon entering the abdomen, the patient had extensive adhesions. Adhesions were simply taken down. Appeared to be a transition zone in the right upper abdomen secondary to adhesions. Small bowel run from the ligament of Treitz to ileocecal valve. All adhesions . The patient also had extensive adhesions in the pelvis, which were taken down to facilitate small bowel mobilization. Upon completion of the lysis of adhesions, small bowel was decompressed using an NG tube in the usual fashion. Enterotomy was closed with TA-30. Abdomen was then copiously irrigated with large amount of antibiotic containing solution. Hemostasis was found to be adequate. Rectal fascia was closed with running suture with looped PDS. Skin was closed clipped, Aric placed, dressing applied. The patient was transferred to the recovery room in stable condition after reversing from general anesthesia. Mauro Agustin MD TID: [id number] RECEIPT: [id number] ZHANG/SHAHRIAR/ALICJA
[2025-01-15 03:41] LABS: BASOPHILS % (AUTO) 0.2 % (0-1); EOSINOPHILS % (AUTO) 0 % (0-6); HEMATOCRIT 41.4 % (42.0-52.0); HEMOGLOBIN 14.2 g/dl (14.0-17.9); LYMPHOCYTES # (AUTO) 0.3 X10'3 (1.1-4.8); LYMPHOCYTES % (AUTO) 2.5 % (21-51); MEAN CORPUSCULAR HEMOGLOBIN 31.8 PG (27.0-31.0); MEAN CORPUSCULAR HGB CONC 34.4 g/dL (33.0-36.5); MEAN CORPUSCULAR VOLUME 92.4 FL (78-98); MEAN PLATELET VOLUME 7.8 FL (7.4-10.4); MONOCYTES # (AUTO) 0.8 X10'3 (0-0.9); MONOCYTES % (AUTO) 5.9 % (2-12); NEUTROPHILS # (AUTO) 12.2 X10'3 (1.8-7.7); NEUTROPHILS % (AUTO) 91.4 % (42-75); PLATELET COUNT 183 X10'3 (140-440); RED BLOOD COUNT 4.48 X10'6 (4.70-6.10); WHITE BLOOD COUNT 13.3 X10'3 (4.5-11.0)
[2025-01-15 03:52] LABS: ALANINE AMINOTRANSFERASE 23 U/L (12-78); ALBUMIN 2.9 G/DL (3.4-5.0); ALBUMIN/GLOBULIN RATIO 1.3 (1.1-1.5); ALKALINE PHOSPHATASE 58 IU/L (46-116); ANION GAP 3 (8-16); ASPARTATE AMINO TRANSFERASE 17 U/L (10-37); BILIRUBIN,TOTAL 0.5 MG/DL (0.1-1.0); BLOOD UREA NITROGEN 12 MG/DL (7-18); BUN/CREATININE RATIO 8.8 (10.0-20.0); CALCIUM 7.7 MG/DL (8.5-10.1); CHLORIDE 105 MMOL/L (99-107); CREATININE 1.37 MG/DL (0.60-1.10); GLUCOSE 180 MG/DL (70-104); MAGNESIUM 1.5 MG/DL (1.5-2.4); POTASSIUM 4.3 MMOL/L (3.5-5.1); SODIUM 138 MMOL/L (135-145); TOTAL CARBON DIOXIDE 29.7 MMOL/L (24-32); TOTAL PROTEIN 5.1 G/DL (6.4-8.2); eCRCL 79 ML/MIN; eGFR 60 ML/MIN
[2025-01-15] MEDS: HYDROmorphone 1 mg/ml syringe IV ONE (06:05)
[2025-01-15] MEDS ORDERED: naloxone 0.4 mg/ml inj IV PRN (13:15)
[2025-01-15] MEDS: HYDROmorph/NS 0.2 mg/ml PCA 100 ML IV SCH ×2 (15:00→17:23)
[2025-01-15] MEDS: piperacillin/tazo 3.375gm/50ml 50 ML IV SCH (15:26)
--- NOTE | 2025-01-15 20:37 | PROGRESS NOTE- Residence ---
Progress Note - Resident Providers to CC Resident Creating Document: HARJINDER BARRETT RES ~ Antibiotic Timeout Antibiotic Ordered?: No Subjective PoD 1 pain is not controlled well after walking PT after more than 20 minutes of IV Dilaudid injection which is 9/10. Complaint of new right flank abdominal pain which is not similar from the previous SBO pain Objective Vital Signs Date Time Temp Pulse Resp B/P (MAP) Pulse Ox O2 Delivery O2 Flow Rate FiO2 01/15/25 19:00 16 01/15/25 12:19 Room Air 01/15/25 12:19 95 0 21 01/15/25 10:00 97.9 91 109/58 (75) Result Diagram: 01/15/25 0315 01/15/25 0315 Vitals were stable at the moment. General: Well alert, well oriented, not confused, not agitated, not in acute distress, well cooperated during the physical. Nasogastric tube in Situ which is still functioning and draining. HEENT: Conjunctive are pink, sclerae clear, no icterus, pupil is equal in both sides, reactive to light, no ear discharge, no pharyngeal erythema or an edema, mouth and lips are dry. Neck: Supple, no JVD, no lymphadenopathy and thyromegaly. Lungs:Equal air entry on both lungs, no additional sounds Heart: S1-S2 regular sinus rhythm and, regular rate, no gallops, no rubs, no murmurs Abdomen: No visible peristalsis, Bowel sounds sluggish, soft, tender at the postsurgical incisional areas, no guarding, no rigidity. No understand testes and scrotum inflammation. No bilateral or umbilical hernia. Surgical incisional wound dressing cleared intact. 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, no motor and sensory weakness in all 4 extremities, could move all 4 extremities Musculoskeletal: No joint swelling, deformities, inflammations, and no scoliosis and back tenderness Skin: No active skin lesions and rashes Coagulation Studies Laboratory Tests Test 01/13/25 11:57 01/13/25 18:13 Activated Partial Thromboplast Time 32 SECONDS (22-32) Prothrombin Time 11.9 SECONDS (9.0-12.0) INR International Normalized Ratio 1.2 INR Coagulation Comments Assessment Assessment A 34 years old male with no significant past medical history except for the s/p laproscopic and complicated with the laprotomy appendicectomy who was transferred from the [facility] in [place] for the sudden acute lower abdominal pain since this morning with slight nausea. Plan Plan # S/p exploratory laparotomy for persistent SBO secondary from adhesions # Partial SBO possibly related to post surgical adhesions # Hx of s/p laparoscopic and complicated with the laparotomy appendicectomy # postop neutrophilic leukocytosis 01/15/25: POD 1 with no complications -continue with Dr. Barker at management plan including advancing diet plan -encourage movement and prevention of post surgical pneumonia, infections, wound dehiscence, UTIs, DVT and pulmonary embolism. -control pain IV Dilaudid q.2 hours as needed -WBC 13.3, was given 2 times of IV C4 toxin after the procedure, WNL WBC and procalcitonin on admission. -continue NG drainage 01/14/25: Dr. Velazquez will perform the possible exploratory laparotomy for his persistent SBO secondary from adhesions as his repeated CTA with oral contrast today showed Small-bowel obstruction with transition point in the right lower quadrant at the level of the umbilicus. Oral contrast does not extend to the ileum and large bowel. No signs of perforation. Small amount of free fluid noted in the abdomen and pelvis. Mild small bowel wall and mesenteric edema noted. -control pain management with IV Dilaudid 1 mg q.2 hours as patient pain is not controlled with IV Dilaudid q.4 hours. 01/13/29:-CT AP was done at [facility] stated that partial SBO. -excluded other potential DDx w/ undescended testes, testicular torsion, kidney stones etc. -possibly from the previous surgical laparotomy and adhesions causing his SBO -electrolytes are within normal schuyler K+ -WNL Lactic acid, WBC and Procal -pain management with IV dilaudid and rash development Hx on Morphine -IV NS 100 ml/hr -NPO -NG tube placement for the bowel decompression -Monitor BM BG and BS -Encouraged movements -ER doc informed that he will inform the Oncall Surgical team. -CT AP w/ contrast at [facility] on 01/13/25 showed that Findings: Lung bases, liver, gallbladder, pancreas spleen and adrenal glands, kidneys, urinary bladder-unremarkable. -the colon is within normal limits. Appendicectomy suspected. The terminal ileum is decompressed. Moderately dilated loops of small bowel are visualized measuring up to 3.5 cm, demonstrating small bowel feces signs and air-fluid levels. No evidence of extraluminal gas or fluid. There are no enlarged lymph nodes. Impressions: Moderate grade partial small bowel obstruction. Transition point is not identified. There appears to be appendectomy, therefore findings may be related to postsurgical adhesions. Consider surgical consultation. # Elevated BUN and Cr- possible ROHIT renal from contrast induced Vs prerenal from renal tubular stasis from dehydration 01/15/25: BUN 12, creatinine 1.37 slightly up trending -continue IV fluids placement -monitor I's and O's 01/14/25: Creatinine 1.33, slightly up trending from his admission 1.24 -continuous monitoring, continue IV fluid drips -continue I's and O's, including nasogastric tube drainage. 01/13/29:-Cr 1.24 with no baseline to be compared, mostly from the dehydration from last drinks and meal was 5 Oclock in the am. -Monitor CMP daily and I's and O's -Continue IV NS 100 ml/hr CODE STATUS: Full code DVT prophylaxis: Sc heparin 5000 units b.i.d. Analgesia/sedation: IV Dilaudid Lines/tubes: Peripheral IV GI prophylaxis: Famotidine Nutrition: NPO Prognosis: Guarded Disposition: Continue medical management including pain management, IV fluids and abdominal distention monitoring with bowel movement, post op care as per Surgical team, bowel sounds monitoring, NG tube drainage monitoring, and PT eval with DC plan. Resident MD attestation: Patient was seen and examined with attending MD, Dr. Luisito BARRETT MD Internal Medicine Resident, PGY2 [facility] Date of Service: Jan 15, 2025 Billing Provider: BELA CARDONA MD Common Visit Codes: [id number] INP/OBS CARE(HIGH) HARJINDER BARRETT RES Jan 15, 2025 20:37 BELA CARDONA MD Jan 15, 2025 22:02
--- NOTE | 2025-01-15 20:53 | PROGRESS NOTE ---
Progress Note ID Providers to CC ~ Progress Note Progress Note: persisent pain/vss/abd-dressing labs noted a/p 1. s/p hamilton-slow progress/cont supportive care ELVIS LOVETT MD Jan 15, 2025 20:53
[2025-01-16 05:08] LABS: BASOPHILS % (AUTO) 0.1 % (0-1); EOSINOPHILS # (AUTO) 0.1 X10'3 (0-0.9); EOSINOPHILS % (AUTO) 0.8 % (0-6); HEMATOCRIT 40.6 % (42.0-52.0); HEMOGLOBIN 13.9 g/dl (14.0-17.9); LYMPHOCYTES # (AUTO) 0.9 X10'3 (1.1-4.8); LYMPHOCYTES % (AUTO) 11.5 % (21-51); MEAN CORPUSCULAR HEMOGLOBIN 31.9 PG (27.0-31.0); MEAN CORPUSCULAR HGB CONC 34.2 g/dL (33.0-36.5); MEAN CORPUSCULAR VOLUME 93.3 FL (78-98); MONOCYTES # (AUTO) 0.8 X10'3 (0-0.9); MONOCYTES % (AUTO) 10.9 % (2-12); NEUTROPHILS # (AUTO) 5.8 X10'3 (1.8-7.7); NEUTROPHILS % (AUTO) 76.7 % (42-75); PLATELET COUNT 179 X10'3 (140-440); RED BLOOD COUNT 4.35 X10'6 (4.70-6.10); RED CELL DISTRIBUTION WIDTH 13.1 % (11.5-14.5); WHITE BLOOD COUNT 7.5 X10'3 (4.5-11.0)
[2025-01-16 05:22] LABS: ALANINE AMINOTRANSFERASE 26 U/L (12-78); ALBUMIN/GLOBULIN RATIO 1.1 (1.1-1.5); ALKALINE PHOSPHATASE 57 IU/L (46-116); ANION GAP 6 (8-16); ASPARTATE AMINO TRANSFERASE 20 U/L (10-37); BILIRUBIN,TOTAL 0.8 MG/DL (0.1-1.0); BLOOD UREA NITROGEN 12 MG/DL (7-18); BUN/CREATININE RATIO 9.2 (10.0-20.0); CALCIUM 8.1 MG/DL (8.5-10.1); CHLORIDE 104 MMOL/L (99-107); CREATININE 1.31 MG/DL (0.60-1.10); GLUCOSE 89 MG/DL (70-104); MAGNESIUM 1.8 MG/DL (1.5-2.4); SODIUM 138 MMOL/L (135-145); TOTAL PROTEIN 5.8 G/DL (6.4-8.2); eCRCL 83 ML/MIN; eGFR 63 ML/MIN
[2025-01-16 06:43] VITALS: BP 107/71; PULSE 90; RESP 16; TEMP 97.7; O2SAT 96
[2025-01-16 08:11] VITALS: RESP 16; O2SAT 98
[2025-01-16 10:47] VITALS: BP 139/73; PULSE 88; RESP 16; TEMP 97.8; O2SAT 95
[2025-01-16] MEDS: Chloraseptic (Phenol) Spray 177ml MM PRN (11:50)
[2025-01-16] MEDS: dextrose 5%-1/2 normal saline 1,000 ML IV SCH (11:57)
[2025-01-16] MEDS: HYDROmorph/NS 0.2 mg/ml PCA 100 ML IV SCH (12:17)
[2025-01-16 16:12] VITALS: O2SAT 96
--- NOTE | 2025-01-16 17:06 | PROGRESS NOTE ---
Progress Note ID Providers to CC ~ Progress Note Progress Note: doing well/cont supportive care ELVIS LOVETT MD January 16, 2025 17:06
[2025-01-16 18:00] VITALS: BP 141/82; PULSE 91; RESP 20; TEMP 99.8; O2SAT 96
[2025-01-16] MEDS: PCA WASTE DOCUMENTATION 1 MG ML MC SCH (18:50)
--- NOTE | 2025-01-16 19:02 | PROGRESS NOTE- Residence ---
Progress Note - Resident Providers to CC Resident Creating Document: HARJINDER BARRETT, ZA ~ Antibiotic Timeout Antibiotic Ordered?: No Subjective PoD 2 pain is not controlled well after walking PT the pain was not controlled well, he is on pain pump management. Objective Vital Signs Date Time Temp Pulse Resp B/P (MAP) Pulse Ox O2 Delivery O2 Flow Rate FiO2 01/16/25 17:00 16 01/16/25 16:12 96 Room Air* 0 21 01/16/25 10:47 97.8 88 139/73 (95) Result Diagram: 01/16/25 0416 01/16/25 0416 Vitals were stable at the moment. General: Well alert, well oriented, not confused, not agitated, not in acute distress, well cooperated during the physical. Nasogastric tube in Situ which is still functioning and draining. HEENT: Conjunctive are pink, sclerae clear, no icterus, pupil is equal in both sides, reactive to light, no ear discharge, no pharyngeal erythema or an edema, mouth and lips are dry. Neck: Supple, no JVD, no lymphadenopathy and thyromegaly. Lungs:Equal air entry on both lungs, no additional sounds Heart: S1-S2 regular sinus rhythm and, regular rate, no gallops, no rubs, no murmurs Abdomen: No visible peristalsis, Bowel sounds sluggish, soft, tender at the postsurgical incisional areas, no guarding, no rigidity. No understand testes and scrotum inflammation. No bilateral or umbilical hernia. Surgical incisional wound dressing cleared intact. Extremities: No obvious deformities, no pitting edema bilaterally, capillary refill intact, able to wiggle toes both sides, peripheral pulsations are intact on both sides OPERATIONS AND MAINTENANCE SUPERVISOR: No focal neurological deficits, no motor and sensory weakness in all 4 extremities, could move all 4 extremities Musculoskeletal: No joint swelling, deformities, inflammations, and no scoliosis and back tenderness Skin: No active skin lesions and rashes Coagulation Studies Laboratory Tests Test 01/13/25 11:57 01/13/25 18:13 Activated Partial Thromboplast Time 32 SECONDS (22-32) Prothrombin Time 11.9 SECONDS (9.0-12.0) INR International Normalized Ratio 1.2 INR Coagulation Comments Assessment Assessment A 34 years old male with no significant past medical history except for the s/p laproscopic and complicated with the laprotomy appendicectomy who was transferred from the [facility] in [place] for the sudden acute lower abdominal pain since this morning with slight nausea. Plan Plan # S/p exploratory laparotomy for persistent SBO secondary from adhesions # Partial SBO possibly related to post surgical adhesions # Hx of s/p laparoscopic and complicated with the laparotomy appendicectomy # postop neutrophilic leukocytosis 01/16/25 : Continue pain pump management with 0.2 Q 10 minutes on demand and not passing the gas yet : Cont as per Dr Jacobson post op surgical management 01/15/25: POD 2 with no complications -continue with Dr. Barker at management plan including advancing diet plan -encourage movement and prevention of post surgical pneumonia, infections, wound dehiscence, UTIs, DVT and pulmonary embolism. -control pain IV Dilaudid q.2 hours as needed -WBC 13.3, was given 2 times of IV C4 toxin after the procedure, WNL WBC and procalcitonin on admission. -continue NG drainage 01/14/25: Dr. Velazquez will perform the possible exploratory laparotomy for his persistent SBO secondary from adhesions as his repeated CTA with oral contrast today showed Small-bowel obstruction with transition point in the right lower quadrant at the level of the umbilicus. Oral contrast does not extend to the ileum and large bowel. No signs of perforation. Small amount of free fluid noted in the abdomen and pelvis. Mild small bowel wall and mesenteric edema noted. -control pain management with IV Dilaudid 1 mg q.2 hours as patient pain is not controlled with IV Dilaudid q.4 hours. 01/13/29:-CT AP was done at [facility] stated that partial SBO. -excluded other potential DDx w/ undescended testes, testicular torsion, kidney stones etc. -possibly from the previous surgical laparotomy and adhesions causing his SBO -electrolytes are within normal schuyler K+ -WNL Lactic acid, WBC and Procal -pain management with IV dilaudid and rash development Hx on Morphine -IV NS 100 ml/hr -NPO -NG tube placement for the bowel decompression -Monitor BM BG and BS -Encouraged movements -ER doc informed that he will inform the Oncall Surgical team. -CT AP w/ contrast at [facility] on 01/13/25 showed that Findings: Lung bases, liver, gallbladder, pancreas spleen and adrenal glands, kidneys, urinary bladder-unremarkable. -the colon is within normal limits. Appendicectomy suspected. The terminal ileum is decompressed. Moderately dilated loops of small bowel are visualized measuring up to 3.5 cm, demonstrating small bowel feces signs and air-fluid levels. No evidence of extraluminal gas or fluid. There are no enlarged lymph nodes. Impressions: Moderate grade partial small bowel obstruction. Transition point is not identified. There appears to be appendectomy, therefore findings may be related to postsurgical adhesions. Consider surgical consultation. # Elevated BUN and Cr- possible ROHIT renal from contrast induced Vs prerenal from renal tubular stasis from dehydration 01/16/25: Creatinine 1.3, -continue IV fluids placement -monitor I's and O's 01/15/25: BUN 12, creatinine 1.37 slightly up trending -continue IV fluids placement -monitor I's and O's 01/14/25: Creatinine 1.33, slightly up trending from his admission 1.24 -continuous monitoring, continue IV fluid drips -continue I's and O's, including nasogastric tube drainage. 01/13/29:-Cr 1.24 with no baseline to be compared, mostly from the dehydration from last drinks and meal was 5 Oclock in the am. -Monitor CMP daily and I's and O's -Continue IV NS 100 ml/hr CODE STATUS: Full code DVT prophylaxis: Sc heparin 5000 units b.i.d. Analgesia/sedation: IV Dilaudid Lines/tubes: Peripheral IV GI prophylaxis: Famotidine Nutrition: NPO Prognosis: Guarded Disposition: Continue medical management including pain management, IV fluids and abdominal distention monitoring with bowel movement, post op care as per Surgical team, bowel sounds monitoring, NG tube drainage monitoring, and PT eval with DC plan. Resident MD attestation: Patient was seen and examined with attending MD, Dr. Luisito BARRETT MD Internal Medicine Resident, PGY2 [facility] Date of Service: January 16, 2025 Billing Provider: BELA CARDONA MD Common Visit Codes: [id number] INP/OBS CARE(HIGH) HARJINDER BARRETT RES January 16, 2025 19:02 BELA CARDONA MD January 16, 2025 22:04
[2025-01-16 20:00] VITALS: RESP 20; O2SAT 96
[2025-01-17] VITALS (7 sets, daily range): BP systolic 114–144; BP diastolic 53–81; PULSE 77–93; RESP 14–16; TEMP 97.5–98.2; O2SAT 93–97
[2025-01-17 05:54] LABS: BASOPHILS % (AUTO) 0.5 % (0-1); EOSINOPHILS # (AUTO) 0.2 X10'3 (0-0.9); EOSINOPHILS % (AUTO) 3.4 % (0-6); HEMATOCRIT 38.8 % (42.0-52.0); HEMOGLOBIN 13.5 g/dl (14.0-17.9); LYMPHOCYTES # (AUTO) 0.9 X10'3 (1.1-4.8); LYMPHOCYTES % (AUTO) 17.1 % (21-51); MEAN CORPUSCULAR HEMOGLOBIN 32.2 PG (27.0-31.0); MEAN CORPUSCULAR HGB CONC 34.7 g/dL (33.0-36.5); MEAN CORPUSCULAR VOLUME 92.8 FL (78-98); MEAN PLATELET VOLUME 7.6 FL (7.4-10.4); MONOCYTES # (AUTO) 0.6 X10'3 (0-0.9); MONOCYTES % (AUTO) 11.7 % (2-12); NEUTROPHILS # (AUTO) 3.4 X10'3 (1.8-7.7); NEUTROPHILS % (AUTO) 67.3 % (42-75); PLATELET COUNT 178 X10'3 (140-440); RED BLOOD COUNT 4.18 X10'6 (4.70-6.10); RED CELL DISTRIBUTION WIDTH 12.9 % (11.5-14.5); WHITE BLOOD COUNT 5.1 X10'3 (4.5-11.0)
[2025-01-17 06:02] LABS: ALANINE AMINOTRANSFERASE 22 U/L (12-78); ALBUMIN 2.7 G/DL (3.4-5.0); ALBUMIN/GLOBULIN RATIO 0.8 (1.1-1.5); ALKALINE PHOSPHATASE 51 IU/L (46-116); ANION GAP 5 (8-16); ASPARTATE AMINO TRANSFERASE 16 U/L (10-37); BILIRUBIN,TOTAL 0.6 MG/DL (0.1-1.0); BLOOD UREA NITROGEN 8 MG/DL (7-18); BUN/CREATININE RATIO 7.1 (10.0-20.0); CALCIUM 8.3 MG/DL (8.5-10.1); CHLORIDE 106 MMOL/L (99-107); CREATININE 1.13 MG/DL (0.60-1.10); GLUCOSE 100 MG/DL (70-104); MAGNESIUM 1.7 MG/DL (1.5-2.4); POTASSIUM 3.7 MMOL/L (3.5-5.1); SODIUM 140 MMOL/L (135-145); TOTAL CARBON DIOXIDE 29.4 MMOL/L (24-32); eCRCL 96 ML/MIN; eGFR 75 ML/MIN
[2025-01-17] MEDS: LIDOcaine 2% Viscous 15ml cup MM PRN (12:38)
--- NOTE | 2025-01-17 18:31 | PROGRESS NOTE ---
Progress Note ID Providers to CC ~ Progress Note Progress Note: doing well/ed ELVIS Lim MD January 17, 2025 18:31
--- NOTE | 2025-01-17 20:11 | PROGRESS NOTE- Residence ---
Progress Note - Resident Providers to CC Resident Creating Document: HARJINDER BARRETT RES ~ Antibiotic Timeout Antibiotic Ordered?: Yes Subjective PoD 3 pain is controlling with pain pump management and complained of soreness at the back of the throat. No passing gas and bowel movement, NG tube is still in Situ. Objective Vital Signs Date Time Temp Pulse Resp B/P (MAP) Pulse Ox O2 Delivery O2 Flow Rate FiO2 01/17/25 19:00 16 01/17/25 10:00 97.5 77 126/81 (96) 97 Room Air 01/16/25 16:12 0 21 Result Diagram: 01/17/25 0535 01/17/25 0535 Vitals were stable at the moment. General: Well alert, well oriented, not confused, not agitated, not in acute distress, well cooperated during the physical. Nasogastric tube in Situ which is still functioning and draining. HEENT: Conjunctive are pink, sclerae clear, no icterus, pupil is equal in both sides, reactive to light, no ear discharge, no pharyngeal erythema or an edema, mouth and lips are dry. Neck: Supple, no JVD, no lymphadenopathy and thyromegaly. Lungs:Equal air entry on both lungs, no additional sounds Heart: S1-S2 regular sinus rhythm and, regular rate, no gallops, no rubs, no murmurs Abdomen: No visible peristalsis, Bowel sounds sluggish, soft, tender at the postsurgical incisional areas, no guarding, no rigidity. No understand testes and scrotum inflammation. No bilateral or umbilical hernia. Surgical incisional wound dressing cleared intact. Extremities: No obvious deformities, no pitting edema bilaterally, capillary refill intact, able to wiggle toes both sides, peripheral pulsations are intact on both sides DIRECTOR CLINICAL OPERATIONS: No focal neurological deficits, no motor and sensory weakness in all 4 extremities, could move all 4 extremities Musculoskeletal: No joint swelling, deformities, inflammations, and no scoliosis and back tenderness Skin: No active skin lesions and rashes Coagulation Studies Laboratory Tests Test 01/13/25 11:57 01/13/25 18:13 Activated Partial Thromboplast Time 32 SECONDS (22-32) Prothrombin Time 11.9 SECONDS (9.0-12.0) INR International Normalized Ratio 1.2 INR Coagulation Comments Assessment Assessment A 34 years old male with no significant past medical history except for the s/p laproscopic and complicated with the laprotomy appendicectomy who was transferred from the [facility] in [place] for the sudden acute lower abdominal pain since this morning with slight nausea. Plan Plan # S/p exploratory laparotomy for persistent SBO secondary from adhesions # Partial SBO possibly related to post surgical adhesions # Hx of s/p laparoscopic and complicated with the laparotomy appendicectomy # postop neutrophilic leukocytosis # painful Traumatic ulcer over post oropharyngeal wall 01/17/2025: Postop day two, pain is managing well with the pain pump, bowel sounds sluggish, no passing gas and no bowel movement. -management of NG tube, diet plan as per Dr. Jacobson management -lidocaine solution swish for the painful traumatic ulcer over post oropharyngeal wall 01/16/25 : Continue pain pump management with 0.2 Q 10 minutes on demand and not passing the gas yet : Cont as per Dr Jacobson post op surgical management 01/15/25: Immediate postop with no complications -continue with Dr. Barker at management plan including advancing diet plan -encourage movement and prevention of post surgical pneumonia, infections, wound dehiscence, UTIs, DVT and pulmonary embolism. -control pain IV Dilaudid q.2 hours as needed -WBC 13.3, was given 2 times of IV C4 toxin after the procedure, WNL WBC and procalcitonin on admission. -continue NG drainage 01/14/25: Dr. Velazquez will perform the possible exploratory laparotomy for his persistent SBO secondary from adhesions as his repeated CTA with oral contrast today showed Small-bowel obstruction with transition point in the right lower quadrant at the level of the umbilicus. Oral contrast does not extend to the ileum and large bowel. No signs of perforation. Small amount of free fluid noted in the abdomen and pelvis. Mild small bowel wall and mesenteric edema noted. -control pain management with IV Dilaudid 1 mg q.2 hours as patient pain is not controlled with IV Dilaudid q.4 hours. 01/13/29:-CT AP was done at [facility] stated that partial SBO. -excluded other potential DDx w/ undescended testes, testicular torsion, kidney stones etc. -possibly from the previous surgical laparotomy and adhesions causing his SBO -electrolytes are within normal schuyler K+ -WNL Lactic acid, WBC and Procal -pain management with IV dilaudid and rash development Hx on Morphine -IV NS 100 ml/hr -NPO -NG tube placement for the bowel decompression -Monitor BM BG and BS -Encouraged movements -ER doc informed that he will inform the Oncall Surgical team. -CT AP w/ contrast at [facility] on 01/13/25 showed that Findings: Lung bases, liver, gallbladder, pancreas spleen and adrenal glands, kidneys, urinary bladder-unremarkable. -the colon is within normal limits. Appendicectomy suspected. The terminal ileum is decompressed. Moderately dilated loops of small bowel are visualized measuring up to 3.5 cm, demonstrating small bowel feces signs and air-fluid levels. No evidence of extraluminal gas or fluid. There are no enlarged lymph nodes. Impressions: Moderate grade partial small bowel obstruction. Transition point is not identified. There appears to be appendectomy, therefore findings may be related to postsurgical adhesions. Consider surgical consultation. # Elevated BUN and Cr- possible ROHIT renal from contrast induced Vs prerenal from renal tubular stasis from dehydration 01/17/2025: Creatinine 1.13, BUN eight, now much different from the previous value, daily CMP check and I's and O's monitoring 01/16/25: Creatinine 1.3, -continue IV fluids placement -monitor I's and O's 01/15/25: BUN 12, creatinine 1.37 slightly up trending -continue IV fluids placement -monitor I's and O's 01/14/25: Creatinine 1.33, slightly up trending from his admission 1.24 -continuous monitoring, continue IV fluid drips -continue I's and O's, including nasogastric tube drainage. 01/13/29:-Cr 1.24 with no baseline to be compared, mostly from the dehydration from last drinks and meal was 5 Oclock in the am. -Monitor CMP daily and I's and O's -Continue IV NS 100 ml/hr CODE STATUS: Full code DVT prophylaxis: Sc heparin 5000 units b.i.d. Analgesia/sedation: IV Dilaudid Lines/tubes: Peripheral IV GI prophylaxis: Famotidine Nutrition: NPO Prognosis: Guarded Disposition: Continue medical management including pain management, IV fluids and abdominal distention monitoring with bowel movement, post op care as per Surgical team, bowel sounds monitoring, NG tube drainage monitoring, and PT eval with DC plan. Resident MD attestation: Patient was seen and examined with attending MD, Dr. Luisito BARRETT MD Internal Medicine Resident, PGY2 [facility] Date of Service: January 17, 2025 Billing Provider: BELA CARDONA MD Common Visit Codes: [id number] INP/OBS CARE(HIGH) HARJINDER BARRETT, RES January 17, 2025 20:11 BELA CARDONA MD January 17, 2025 22:09
[2025-01-18 06:00] VITALS: BP 110/74; PULSE 70; RESP 16; TEMP 98.5; O2SAT 96
[2025-01-18 06:02] LABS: ALANINE AMINOTRANSFERASE 22 U/L (12-78); ALBUMIN 2.7 G/DL (3.4-5.0); ALBUMIN/GLOBULIN RATIO 0.8 (1.1-1.5); ALKALINE PHOSPHATASE 50 IU/L (46-116); ANION GAP 4 (8-16); ASPARTATE AMINO TRANSFERASE 13 U/L (10-37); BILIRUBIN,TOTAL 0.7 MG/DL (0.1-1.0); BLOOD UREA NITROGEN 8 MG/DL (7-18); BUN/CREATININE RATIO 6.3 (10.0-20.0); CALCIUM 8.3 MG/DL (8.5-10.1); CHLORIDE 105 MMOL/L (99-107); CREATININE 1.28 MG/DL (0.60-1.10); GLUCOSE 95 MG/DL (70-104); POTASSIUM 3.5 MMOL/L (3.5-5.1); SODIUM 140 MMOL/L (135-145); TOTAL CARBON DIOXIDE 30.8 MMOL/L (24-32); TOTAL PROTEIN 5.9 G/DL (6.4-8.2); eCRCL 85 ML/MIN; eGFR 65 ML/MIN
[2025-01-18 06:09] LABS: BASOPHILS % (AUTO) 0.7 % (0-1); EOSINOPHILS # (AUTO) 0.2 X10'3 (0-0.9); EOSINOPHILS % (AUTO) 5.7 % (0-6); HEMATOCRIT 38.8 % (42.0-52.0); HEMOGLOBIN 13.6 g/dl (14.0-17.9); LYMPHOCYTES # (AUTO) 0.7 X10'3 (1.1-4.8); LYMPHOCYTES % (AUTO) 18.5 % (21-51); MEAN CORPUSCULAR HEMOGLOBIN 31.9 PG (27.0-31.0); MEAN CORPUSCULAR VOLUME 91.3 FL (78-98); MONOCYTES # (AUTO) 0.5 X10'3 (0-0.9); MONOCYTES % (AUTO) 11.6 % (2-12); NEUTROPHILS # (AUTO) 2.5 X10'3 (1.8-7.7); NEUTROPHILS % (AUTO) 63.5 % (42-75); PLATELET COUNT 189 X10'3 (140-440); RED BLOOD COUNT 4.25 X10'6 (4.70-6.10); RED CELL DISTRIBUTION WIDTH 12.9 % (11.5-14.5); WHITE BLOOD COUNT 3.9 X10'3 (4.5-11.0)
[2025-01-18 09:53] VITALS: BP 126/72; PULSE 76; RESP 17; TEMP 97.9; O2SAT 97
[2025-01-18] MEDS ORDERED: HYDROcodone/acetaminophen 5mg/325mg tablet PO PRN (12:55)
[2025-01-18] MEDS: HYDROcodone/acetaminophen 10/325mg tab PO PRN (14:00)
--- NOTE | 2025-01-18 14:00 | PROGRESS NOTE ---
Progress Note ID Providers to CC ~ Progress Note Progress Note: + flatus/vss/abd-min distention/labs noted a/p 1. s/p hamilton-doing well/clears ELVIS LOVETT MD January 18, 2025 14:00
--- NOTE | 2025-01-18 17:50 | PROGRESS NOTE- Residence ---
Progress Note - Resident Providers to CC Resident Creating Document: HARJINDER BARRETT RES ~ Antibiotic Timeout Antibiotic Ordered?: Yes Subjective PoD 3 pain is controlling with pain pump management and still having soreness at the back of the throat. Today, he is passing gas but no bowel movement,Dr Jacobson allows to take NG tube out yesterday. Objective Vital Signs Date Time Temp Pulse Resp B/P (MAP) Pulse Ox O2 Delivery O2 Flow Rate FiO2 01/18/25 14:00 18 01/18/25 10:21 Room Air 01/18/25 09:53 97.9 76 126/72 (90) 97 01/16/25 16:12 0 21 Result Diagram: 01/18/250 01/18/25 0440 Vitals were stable at the moment. General: Well alert, well oriented, not confused, not agitated, not in acute distress, well cooperated during the physical. Nasogastric tube in Situ which is still functioning and draining. HEENT: Conjunctive are pink, sclerae clear, no icterus, pupil is equal in both sides, reactive to light, no ear discharge, no pharyngeal erythema or an edema, mouth and lips are dry. Neck: Supple, no JVD, no lymphadenopathy and thyromegaly. Lungs:Equal air entry on both lungs, no additional sounds Heart: S1-S2 regular sinus rhythm and, regular rate, no gallops, no rubs, no murmurs Abdomen: No visible peristalsis, Bowel sounds sluggish, soft, tender at the postsurgical incisional areas, no guarding, no rigidity. No understand testes and scrotum inflammation. No bilateral or umbilical hernia. Surgical incisional wound dressing cleared intact. Extremities: No obvious deformities, no pitting edema bilaterally, capillary refill intact, able to wiggle toes both sides, peripheral pulsations are intact on both sides VOLUNTEER SERVICES SPECIALIST: No focal neurological deficits, no motor and sensory weakness in all 4 extremities, could move all 4 extremities Musculoskeletal: No joint swelling, deformities, inflammations, and no scoliosis and back tenderness Skin: No active skin lesions and rashes Coagulation Studies Laboratory Tests Test 01/13/25 11:57 01/13/25 18:13 Activated Partial Thromboplast Time 32 SECONDS (22-32) Prothrombin Time 11.9 SECONDS (9.0-12.0) INR International Normalized Ratio 1.2 INR Coagulation Comments Assessment Assessment A 34 years old male with no significant past medical history except for the s/p laproscopic and complicated with the laprotomy appendicectomy who was transferred from the [facility] in [place] for the sudden acute lower abdominal pain since this morning with slight nausea. Plan Plan # S/p exploratory laparotomy for persistent SBO secondary from adhesions # Partial SBO possibly related to post surgical adhesions # Hx of s/p laparoscopic and complicated with the laparotomy appendicectomy # postop neutrophilic leukocytosis # painful Traumatic ulcer over post oropharyngeal wall 01/18/2025: Postop day three, passing gas but no bowel movement, pain is well managed control and we are going to switch into oral Amber after stopped the pain pump, encourage movement and continue having pulse equals I's and chips for the sore throat ulcer, continue as Dr. Jacobson management plan. -continue IV antibiotics IV Zosyn-day three - continue with IV Reglan for BM if Dr Jacobson agreed with it 01/17/2025: Postop day two, pain is managing well with the pain pump, bowel sounds sluggish, no passing gas and no bowel movement. -management of NG tube, diet plan as per Dr. Jacobson management -lidocaine solution swish for the painful traumatic ulcer over post oropharyngeal wall 01/16/25 : Continue pain pump management with 0.2 Q 10 minutes on demand and not passing the gas yet : Cont as per Dr Jacobson post op surgical management 01/15/25: Immediate postop with no complications -continue with Dr. Barker at management plan including advancing diet plan -encourage movement and prevention of post surgical pneumonia, infections, wound dehiscence, UTIs, DVT and pulmonary embolism. -control pain IV Dilaudid q.2 hours as needed -WBC 13.3, was given 2 times of IV C4 toxin after the procedure, WNL WBC and procalcitonin on admission. -continue NG drainage 01/14/25: Dr. Velazquez will perform the possible exploratory laparotomy for his persistent SBO secondary from adhesions as his repeated CTA with oral contrast today showed Small-bowel obstruction with transition point in the right lower quadrant at the level of the umbilicus. Oral contrast does not extend to the ileum and large bowel. No signs of perforation. Small amount of free fluid noted in the abdomen and pelvis. Mild small bowel wall and mesenteric edema noted. -control pain management with IV Dilaudid 1 mg q.2 hours as patient pain is not controlled with IV Dilaudid q.4 hours. 01/13/29:-CT AP was done at [facility] stated that partial SBO. -excluded other potential DDx w/ undescended testes, testicular torsion, kidney stones etc. -possibly from the previous surgical laparotomy and adhesions causing his SBO -electrolytes are within normal schuyler K+ -WNL Lactic acid, WBC and Procal -pain management with IV dilaudid and rash development Hx on Morphine -IV NS 100 ml/hr -NPO -NG tube placement for the bowel decompression -Monitor BM BG and BS -Encouraged movements -ER doc informed that he will inform the Oncall Surgical team. -CT AP w/ contrast at [facility] on 01/13/25 showed that Findings: Lung bases, liver, gallbladder, pancreas spleen and adrenal glands, kidneys, urinary bladder-unremarkable. -the colon is within normal limits. Appendicectomy suspected. The terminal ileum is decompressed. Moderately dilated loops of small bowel are visualized measuring up to 3.5 cm, demonstrating small bowel feces signs and air-fluid levels. No evidence of extraluminal gas or fluid. There are no enlarged lymph nodes. Impressions: Moderate grade partial small bowel obstruction. Transition point is not identified. There appears to be appendectomy, therefore findings may be related to postsurgical adhesions. Consider surgical consultation. # Elevated BUN and Cr- possible ROHIT renal from contrast induced Vs prerenal from renal tubular stasis from dehydration 01/18/2025: BUN eight, creatinine 1.28, continue monitoring 01/17/2025: Creatinine 1.13, BUN eight, now much different from the previous value, daily CMP check and I's and O's monitoring 01/16/25: Creatinine 1.3, -continue IV fluids placement -monitor I's and O's 01/15/25: BUN 12, creatinine 1.37 slightly up trending -continue IV fluids placement -monitor I's and O's 01/14/25: Creatinine 1.33, slightly up trending from his admission 1.24 -continuous monitoring, continue IV fluid drips -continue I's and O's, including nasogastric tube drainage. 01/13/29:-Cr 1.24 with no baseline to be compared, mostly from the dehydration from last drinks and meal was 5 Oclock in the am. -Monitor CMP daily and I's and O's -Continue IV NS 100 ml/hr CODE STATUS: Full code DVT prophylaxis: Sc heparin 5000 units b.i.d. Analgesia/sedation: IV Dilaudid Lines/tubes: Peripheral IV GI prophylaxis: Famotidine Nutrition: NPO Prognosis: Guarded Disposition: Continue medical management including pain management with oral Amber, IV fluids and abdominal distention monitoring with bowel movement, post op care as per Surgical team, bowel sounds monitoring, and PT eval with DC plan. Resident MD attestation: Patient was seen and examined with attending MD, Dr. Luisito BARRETT MD Internal Medicine Resident, PGY2 [facility] Date of Service: January 18, 2025 Billing Provider: BELA CARDONA MD Common Visit Codes: [id number] INP/OBS CARE(HIGH) HARJINDER BARRETT, ZA January 18, 2025 17:50 BELA CARDONA MD January 18, 2025 20:03
[2025-01-18 18:30] VITALS: BP 115/65; PULSE 85; RESP 18; TEMP 98.7; O2SAT 96
[2025-01-18 18:45] VITALS: RESP 18; O2SAT 96
[2025-01-18] MEDS: HYDROmorphone inj. 0.5 MG/0.5 ML DISP.SYRIN IV PRN (19:23)
[2025-01-18 22:00] VITALS: BP 121/74; PULSE 77; RESP 18; TEMP 97.8; O2SAT 97
[2025-01-19 06:04] LABS: ALBUMIN 2.7 G/DL (3.4-5.0); ANION GAP 5 (8-16); BLOOD UREA NITROGEN 10 MG/DL (7-18); CALCIUM 8.3 MG/DL (8.5-10.1); CHLORIDE 106 MMOL/L (99-107); CREATININE 1.25 MG/DL (0.60-1.10); GLUCOSE 87 MG/DL (70-104); POTASSIUM 3.7 MMOL/L (3.5-5.1); SODIUM 140 MMOL/L (135-145); TOTAL CARBON DIOXIDE 29.1 MMOL/L (24-32); eCRCL 87 ML/MIN; eGFR 67 ML/MIN
[2025-01-19 08:00] VITALS: RESP 18
[2025-01-19 11:09] VITALS: BP 149/78; PULSE 73; RESP 16; TEMP 98; O2SAT 99
[2025-01-19] MEDS ORDERED: oxyCODONE/APAP 5-325mg tablet PO PRN (11:45)
--- NOTE | 2025-01-19 13:06 | PROGRESS NOTE ---
Progress Note ID Providers to CC ~ Progress Note Progress Note: doing well/advance po ELVIS LOVETT MD January 19, 2025 13:06
[2025-01-19] MEDS: oxyCODONE/APAP 10/325mg tablet PO PRN (13:07)
--- NOTE | 2025-01-19 18:15 | PROGRESS NOTE- Residence ---
Progress Note - Resident Providers to CC Resident Creating Document: VENKATESH MYRICK, ZA ~ Central Line/PICC still needed: No Salazar-Non Protocol Salazar Indications Met/Not Met: F/C Indications Not Met Antibiotic Timeout Antibiotic Ordered?: Yes Subjective Patient able to walk around today. Pain better controlled with oral medications, switched to Percocet. Passing gas but no bowel movement yet. Was seen walking around comfortably. States that his throat pain has resolved. Objective Vital Signs Date Time Temp Pulse Resp B/P (MAP) Pulse Ox O2 Delivery O2 Flow Rate FiO2 01/19/25 14:59 16 01/19/25 13:19 Room Air 01/19/25 11:09 98.0 73 149/78 (101) 99 01/18/25 22:00 0.0 21 Result Diagram: 01/18/25 0440 01/19/25 0530 General: Awake and Alert, no acute distress. HEENT: Conjunctiva pink, Sclera clear, Mucus Membranes moist. Resp: Unlabored. Lungs clear to auscultation bilaterally. Heart: Regular Rate and rhythm, normal S1 and S2 without murmur, rub or gallop. Abdomen: Soft and non tender no organomegaly. Bowel sounds present Extremities: No cyanosis,clubbing or edema. Skin: Warm and Dry. Coagulation Studies Laboratory Tests Test 01/13/25 11:57 01/13/25 18:13 Activated Partial Thromboplast Time 32 SECONDS (22-32) Prothrombin Time 11.9 SECONDS (9.0-12.0) INR International Normalized Ratio 1.2 INR Coagulation Comments Assessment Assessment A 34 years old male with no significant past medical history except for the s/p laproscopic and complicated with the laprotomy appendicectomy who was transferred from the [facility] in [place] for the sudden acute lower abdominal pain since this morning with slight nausea. Plan Plan 1. S/p exploratory laparotomy for persistent SBO secondary from adhesions Partial SBO possibly related to post surgical adhesions Hx of s/p laparoscopic and complicated with the laparotomy appendicectomy 01/19/2025: Stable to pass gas but still has had no bowel. Awaiting further recommendations from surgery. Pain management with Percocet. 01/18/2025: Postop day three, passing gas but no bowel movement, pain is well managed control and we are going to switch into oral [place] after stopped the pain pump, encourage movement and continue having pulse equals I's and chips for the sore throat ulcer, continue as Dr. Jacobson management plan. -continue IV antibiotics IV Zosyn-day three - continue with IV Reglan for BM if Dr Jacobson agreed with it 01/17/2025: Postop day two, pain is managing well with the pain pump, bowel sounds sluggish, no passing gas and no bowel movement. -management of NG tube, diet plan as per Dr. Jacobson management -lidocaine solution swish for the painful traumatic ulcer over post oropharyngeal wall 01/16/25 : Continue pain pump management with 0.2 Q 10 minutes on demand and not passing the gas yet : Cont as per Dr Jacobson post op surgical management 01/15/25: Immediate postop with no complications -continue with Dr. Barker at management plan including advancing diet plan -encourage movement and prevention of post surgical pneumonia, infections, wound dehiscence, UTIs, DVT and pulmonary embolism. -control pain IV Dilaudid q.2 hours as needed -WBC 13.3, was given 2 times of IV C4 toxin after the procedure, WNL WBC and procalcitonin on admission. -continue NG drainage 01/14/25: Dr. Velazquez will perform the possible exploratory laparotomy for his persistent SBO secondary from adhesions as his repeated CTA with oral contrast today showed Small-bowel obstruction with transition point in the right lower quadrant at the level of the umbilicus. Oral contrast does not extend to the ileum and large bowel. No signs of perforation. Small amount of free fluid noted in the abdomen and pelvis. Mild small bowel wall and mesenteric edema noted. -control pain management with IV Dilaudid 1 mg q.2 hours as patient pain is not controlled with IV Dilaudid q.4 hours. 01/13/29:-CT AP was done at [facility] stated that partial SBO. -excluded other potential DDx w/ undescended testes, testicular torsion, kidney stones etc. -possibly from the previous surgical laparotomy and adhesions causing his SBO -electrolytes are within normal schuyler K+ -WNL Lactic acid, WBC and Procal -pain management with IV dilaudid and rash development Hx on Morphine -IV NS 100 ml/hr -NPO -NG tube placement for the bowel decompression -Monitor BM BG and BS -Encouraged movements -ER doc informed that he will inform the Oncall Surgical team. -CT AP w/ contrast at [facility] on 01/13/25 showed that Findings: Lung bases, liver, gallbladder, pancreas spleen and adrenal glands, kidneys, urinary bladder-unremarkable. -the colon is within normal limits. Appendicectomy suspected. The terminal ileum is decompressed. Moderately dilated loops of small bowel are visualized measuring up to 3.5 cm, demonstrating small bowel feces signs and air-fluid levels. No evidence of extraluminal gas or fluid. There are no enlarged lymph nodes. Impressions: Moderate grade partial small bowel obstruction. Transition point is not identified. There appears to be appendectomy, therefore findings may be related to postsurgical adhesions. Consider surgical consultation. 2. Possible ROHIT: Unknown baseline ROHIT secondary to ATN 01/19/2025: Creatinine trend remained stable. This likely seems to be CKD. Stage III. Unusual as the patient is only 34 years of age. Recommend outpatient nephrology follow up. 01/18/2025: BUN eight, creatinine 1.28, continue monitoring 01/17/2025: Creatinine 1.13, BUN eight, now much different from the previous value, daily CMP check and I's and O's monitoring 01/16/25: Creatinine 1.3, -continue IV fluids placement -monitor I's and O's 01/15/25: BUN 12, creatinine 1.37 slightly up trending -continue IV fluids placement -monitor I's and O's 01/14/25: Creatinine 1.33, slightly up trending from his admission 1.24 -continuous monitoring, continue IV fluid drips -continue I's and O's, including nasogastric tube drainage. 01/13/29:-Cr 1.24 with no baseline to be compared, mostly from the dehydration from last drinks and meal was 5 Oclock in the am. -Monitor CMP daily and I's and O's -Continue IV NS 100 ml/hr 3. Postop neutrophilic leukocytosis: Resolved 4. Painful Traumatic ulcer over post oropharyngeal wall: 01/18/2025: NG tube removed 01/19/2025: Ulcer and pain improved CODE STATUS: Full code DVT prophylaxis: Sc heparin 5000 units b.i.d. Analgesia/sedation: IV Dilaudid Lines/tubes: Peripheral IV GI prophylaxis: Famotidine Nutrition: NPO Prognosis: Guarded Disposition: Continue medical management including pain management with oral [place], IV fluids. Awaiting bowel movement. Awaiting clearance from surgical team for discharge home. Venkatesh Myrick PGY2, Internal medicine resident Date of Service: January 19, 2025 Billing Provider: BELA CARDONA MD Common Visit Codes: [id number] INP/OBS CARE(HIGH) VENKATESH MYRICK, ZA January 19, 2025 18:15 BELA CARDONA MD January 19, 2025 21:05
[2025-01-20] MEDS: HYDROmorphone 1 mg/ml syringe IV PRN (01:25)
[2025-01-20 08:00] VITALS: RESP 16
[2025-01-20 10:00] VITALS: BP 131/83; PULSE 97; RESP 18; TEMP 97.6; O2SAT 97
[2025-01-20] MEDS ORDERED: PER5325T PO (11:42)
--- NOTE | 2025-01-20 13:00 | PROGRESS NOTE ---
Progress Note ID Providers to CC ~ Progress Note Progress Note: doing well/ok to ELVIS Conley MD January 20, 2025 13:00
--- NOTE | 2025-01-20 18:30 | DISCHARGE SUMMARY-Residence ---
Discharge Summary Providers to CC Resident Creating Document: IRAIS ROBBINS, ZA ~ Discharge Summary Admission Diagnosis: SBO Hospital Course DATE OF ADMISSION: 01/13/2025 DATE OF DISCHARGE: 01/20/2025 X-RAY ABDOMEN ON 01/13/2025 FINDINGS: Nonobstructive bowel gas pattern noted. There is no evidence for pneumoperitoneum. No abnormal calcifications noted. Enteric tube in the proximal body of the stomach. Mild stool burden. IMPRESSION Enteric tube in the proximal body of the stomach. CT ABDOMEN PELVIS WITH ORAL CONTRAST ON 01/14/2025 IMPRESSION: 1. Small-bowel obstruction with transition point in the right lower quadrant at the level of the umbilicus. Oral contrast does not extend to the ileum and large bowel. No signs of perforation. Small amount of free fluid noted in the abdomen and pelvis. Mild small bowel wall and mesenteric edema noted. CHEST X-RAY ON 01/14/2025 IMPRESSION: 1. Enteric tube in the stomach 2. Right internal jugular catheter in the superior vena cava above the right atrium. No right pneumothorax Discharge Diagnosis\Comment: COMPLETE SMALL-BOWEL OBSTRUCTION SECONDARY TO POSTSURGICAL ADHESIONS STATUS POST EXPLORATORY LAPAROTOMY AND ADHESION LYSIS ROHIT ON CKD 2/2 ATN PAINFUL TRAUMATIC ULCER OF OVER POSTERIOR PHARYNGEAL WALL Operations\Procedures: DATE OF SURGERY: 01/14/2025 DICTATING PHYSICIAN: Mauro Agustin MD PREOPERATIVE DIAGNOSIS: Small bowel obstruction. POSTOPERATIVE DIAGNOSIS: Small bowel obstruction. PROCEDURES PERFORMED: * Exploratory laparotomy. * Lysis of adhesions. SURGEON: Mauro Agustin MD PHYSICIAN OFFICE SECRETARY: None. ANESTHESIA: General/Rose Causey MD. DRAINS: None. INDICATIONS FOR OPERATION: A 34-year-old male with previous laparotomy for acute appendicitis. He developed a small bowel obstruction. Followup CAT scan revealed improvement. The patient was seen in Surgery for laparotomy. INTRAOPERATIVE FINDINGS: The patient had extensive adhesions with a complete small bowel obstruction involving the distal jejunum. DESCRIPTION OF PROCEDURE: The patient was placed supine on the operating table. After induction of general anesthesia and placement of endotracheal tube, the abdomen was prepped and draped. Abdomen was entered with midline incision and upon entering the abdomen, the patient had extensive adhesions. Adhesions were simply taken down. Appeared to be a transition zone in the right upper abdomen secondary to adhesions. Small bowel run from the ligament of Treitz to ileocecal valve. All adhesions The patient also had extensive adhesions in the pelvis, which were taken down to facilitate small bowel mobilization. Upon completion of the lysis of adhesions, small bowel was decompressed using an NG tube in the usual fashion. Enterotomy was closed with TA-30. Abdomen was then copiously irrigated with large amount of antibiotic containing solution. Hemostasis was found to be adequate. Rectal fascia was closed with running suture with looped PDS. Skin was closed clipped, Aric placed, dressing applied. The patient was transferred to the recovery room in stable condition after reversing from general anesthesia. Mauro Agustin MD Consultants: DR. MAURO AGUSTIN Complications: None Condition on DC: Stable New Medications: Oxycodone Hcl/Acetaminophen 5/325 MG* (Percocet 5/325 MG*) 5 Mg/325 Mg Tablet 1 TAB PO Q6H PRN for moderate or severe pain 4-10, #14 TAB Discharge Summary: HPI AT THE TIME OF ADMISSION PER ADMITTING PHYSICIAN A 34 years old male with no significant past medical history except for the s/p laproscopic and complicated with the laprotomy appendicectomy who was transferred from the [facility] in [place] for the sudden acute lower abdominal pain since this morning with slight nausea. He is a travel ICU nurse and endorsed that he woke up with the acute sudden central periumbilical pain with sharp colicky in nature, associated with nausea but not vomiting this morning around 3 O'clock. He noticed that his pain was getting better with the position which make his intraabdominal pressure relieved e.g. lying down and sitting etc and similar to the pain when he got appendicitis. He could pass the gas but not the bowel movement since he passed his last time BM was yesterday morning and which was normal solid form and no previous Hx of LBM diarrhea and constipation. He denied radiating and shifting pain, fever with chills and rigors, projectile vomiting, SOB, perspiration, Chest pain, hematuria and dysuria. He denies any traumatic injury to the lower abdomen, scrotum and private parts, any previous Hx of UTIs and STIs before. However, he stated that he has a laparoscopic incisional approach for suspicious malignant intrabdominal lesion but had to do the open incision for the appendicitis, which was further complicated with the open midline laparotomy for the decompression within days 1-2 years ago. He denied any recent travelling history outside of the countries and food poisoning. He denies losing appetite and unexplained significant abrupt weight loss. No history of bilateral inguinal femoral and umbilical hernias. COURSE IN THE HOSPITAL A 34 years old male with no significant past medical history except for the s/p laproscopic and complicated with the laprotomy appendicectomy who was transferred from the [facility] in [place] for the sudden acute lower abdominal pain with slight nausea and admitted for small-bowel obstruction related to postsurgical adhesions(laparoscopic and complicated with laparotomy appendectomy). -CT AP w/ contrast at [facility] on 01/13/25 showed Moderate grade partial small bowel obstruction. Transition point is not identified. There appears to be appendectomy, therefore findings may be related to postsurgical adhesions. Patient received pain management with IV Dilaudid and IV normal saline and patient was on NPO. NG tube was placed for bowel decompression. Serum electrolytes were normal initially. Consulted Dr. Jacobson and recommended CT angiography with the oral contrast which revealed Small-bowel obstruction with transition point in the right lower quadrant at the level of the umbilicus. Oral contrast does not extend to the ileum and large bowel. No signs of perforation. Small amount of free fluid noted in the abdomen and pelvis. Mild small bowel wall and mesenteric edema noted. On 01/15/2025 Dr. Agustin performed the exploratory laparotomy and then management plan per Dr.Br mosley and without any immediate postop complications. Pain was managed with pain pump. Treated with IV antibiotics of Zosyn.idocaine solution swish for the painful traumatic ulcer over post oropharyngeal wall. Patient is stable to pass the gas on pain was managed with Percocet. Received famotidine for GI prophylaxis and subcutaneous heparin for DVT prophylaxis. EXAMINATION AT THE TIME OF DISCHARGE Vital Signs Date Time Temp Pulse Resp B/P (MAP) Pulse Ox O2 Delivery O2 Flow Rate FiO2 01/20/25 10:00 97.6 97 18 131/83 (99) 97 Room Air 01/20/25 08:00 0.0 21 EXAMINATION General: Awake and Alert, no acute distress. HEENT: Conjunctiva pink, Sclera clear, Mucus Membranes moist. Resp: Unlabored. Lungs clear to auscultation bilaterally. Heart: Regular Rate and rhythm, normal S1 and S2 without murmur, rub or gallop. Abdomen: Soft and non tender no organomegaly. Bowel sounds present Extremities: No cyanosis,clubbing or edema. Skin: Warm and Dry Laboratory Tests Test 01/19/25 05:30 Sodium Level 140 MMOL/L Potassium Level 3.7 MMOL/L Chloride Level 106 MMOL/L Carbon Dioxide Level 29.1 MMOL/L Anion Gap 5 Blood Urea Nitrogen 10 MG/DL Creatinine 1.25 MG/DL Estimated GFR/1.73 m2 67 ML/MIN BUN/Creatinine Ratio 8.0 Glucose Level 87 MG/DL Calcium Level 8.3 MG/DL Albumin 2.7 G/DL Chemistry Comments DISCHARGE ADVICE : Continue [place] five one tablet p.o. q.6 H p.r.n. for dslftxqj-mo-vheyuk pain Follow up with primary care physician within one week. Call 911 or visit ER if emergency. Recommended outpatient follow up with Nephrology for ROHIT/CKD. *Problems/Diagnosis: (1) Small bowel obstruction due to postoperative adhesions (2) Small bowel obstruction Status: Acute (3) ROHIT (acute kidney injury) (4) ATN (acute tubular necrosis) (5) CKD (chronic kidney disease) Total Time Spent on D/C: > 30 Minutes Date of Service: January 20, 2025 Billing Provider: BELA CARDONA MD Common Visit Codes: 66103-ZIZ/OBS DISCH DAY >30min IRAIS ROBBINS, ZA January 20, 2025 18:15 BELA CARDONA MD January 20, 2025 20:49
== END 2025-01-20 12:37 | disposition home or self-care (01) | DRG 335 ==
LOC: ER 11:37 → ED HOLD 15:15 → SUR 3N 17:45
PROVIDERS: ADMIT Internal Medicine; ATTEND Internal Medicine
PROC: 0DN80ZZ Release Small Intestine, Open Approach (ICD-10-PCS; principal; 2025-01-14 14:52)
DX: K91.32 Postprocedural complete intestinal obstruction (principal); N17.0 Acute kidney failure with tubular necrosis; N18.9 Chronic kidney disease, unspecified; J39.2 Other diseases of pharynx; Z90.49 Acquired absence of other specified parts of digestive tract
CPT/HCPCS: 96361; 96374; 96375; 99285; Z7506; Z7508; 36415; 71045; 74018; 74176; 80048; 80053; 81003; 82948; 83605; 83690; 83735; 84145; 85025; 85610; 85730; 86885; 86900; 86901; 87081; A4333; A4615; A4618; A5200; A6253; A6258; A6402; A6407; A6449; A7000; C1758; G0378; J0131; J0666; J0694; J0780; J1100; J1171; J1644; J1885; J2003; J2175; J2250; J2405; J2543; J2704; J2710; J2795; J3010; J3480; J3490; J7030; J7120; Q9963